=== PATIENT | male | born 1970 | race Caucasian/White ===

== ENCOUNTER 2024-08-29 13:06 | Emergency (ER) | payer OTHER, SELFPAY ==
[2024-08-29 13:12] VITALS: BP 187/89; PULSE 92; RESP 20; TEMP 36.8; O2SAT 96
[2024-08-29 13:56] LABS: COVID-19 PCR Negative (Negative); Influenza A PCR Negative (Negative); Influenza B PCR Negative (Negative); RSV PCR Negative (Negative)
[2024-08-29 14:01] LABS: Source Nasopharynx
--- NOTE | 2024-08-29 14:15 | RT.EKG_ITS ---
APPROVED REPORT Exam: Resting ECG Reason for Exam: sob Patient Location: E HR:92 bpm ECG Measurements Heart Rate 92 AXIS MN 113 P 58 QRSd 132 QRS -35 QT 385 T 59 QTc 471 Conclusion Sinus rhythm...normal P axis, V-rate 60- 99 Atrial premature complexes...SV complexes w/ short R-R intvls Probable left atrial enlargement...P >50mS, <-0.10mV V1 Right bundle branch block...QRSd>120, terminal axis(90,270) Sinus wwith RBBB, premasture atrial complexes, no prior for comparison. WD
--- NOTE | 2024-08-29 14:15 | DI.RAD_ITS ---
Exam(s) XR CHEST 2V PA LATERAL EXAM: XR CHEST 2V PA LATERAL CLINICAL HISTORY: cough, SOB TECHNIQUE: 2D digital imaging was performed. Two views. COMPARISON: No exams were available for comparison FINDINGS: HEART: Normal size. Status post CABG. Aorta: Not dilated. PULMONARY VASCULATURE: Normal. MEDIASTINUM: Unremarkable. LUNGS: Clear. PLEURAL SPACE: No pleural effusion or pneumothorax. BONE:Unremarkable for age. Sternal wires. SOFT TISSUES: Unremarkable. IMPRESSION: No acute abnormality. DATA REPOSITORY: RADIATION DOSE DELIVERED:
[2024-08-29] MEDS: predniSONE 20 MG TAB 60 MG PO (14:37)
[2024-08-29] MEDS: Albuterol/Ipratropium 3 ML UPD VIAL UPD (14:37)
--- NOTE | 2024-08-29 15:15 | W.ED.GENAD ---
Discharge Plan Disposition Patient Disposition: Home Condition: Stable Discharge Details Clinical Impression: Bronchitis Primary Care Provider: [place] [place] ED Provider: Lissette Gipson Home Meds and New Rx's Prescriptions: New doxycycline hyclate 100 mg capsule 100 mg PO BID Qty: 14 0RF prednisone 50 mg tablet 50 mg PO DAILY Qty: 5 0RF albuterol sulfate 90 mcg/actuation HFA aerosol inhaler 2 puff inhalation Q6H PRNQty: 8.5 0RF benzonatate 200 mg capsule 200 mg PO BID PRNQty: 30 0RF No Action clopidogrel 75 mg tablet 75 mg PO DAILY aspirin 81 mg tablet 81 mg PO DAILY omeprazole 20 mg capsule,delayed release(DR/EC) 20 mg PO DAILY metoprolol succinate 25 mg tablet extended release 24 hr 25 mg PO DAILY Discharge Instructions Instructions: Acute bronchitis, Conjunctivitis (pink eye) Additional Instructions: Take antibiotic as prescribed. Use inhaler as needed. Take steroid. Follow-up with your primary care doctor. Stand Alone Forms: Work Release Referrals: [facility] [Primary Care Provider] - Discharge Data Discharge Physician: Lissette Gipson [facility] General Date/Time Provider Initiated Documentation: 08/29/24 13:55. HPI Narrative: 54-year-old male with history of coronary disease status post CABG and history of tobacco use presents for evaluation of ongoing cough. Patient states that symptoms began a week ago Monday. He has had intermittent cough with green sputum production. He has also had some intermittent fevers. He has been taking Tylenol. He states that he has congestion in his ear and pain to his left ear. He feels like his anterior lymph nodes are enlarged. He occasionally has some burning in his throat. He was seen at urgent care last week and had negative strep, flu, COVID, RSV. He states that his symptoms were a little worse over the last couple of days. Denies any nausea or vomiting. No abdominal pain. He did not have a bowel movement today but otherwise has been having normal bowel movements. Denies any urinary difficulty. He does have a history of smoking prior to his heart surgery however never officially diagnosed with COPD. He does not use inhalers. No recent steroid or antibiotic use. Related Data Home Medications ?Medication ?Instructions ?Recorded ?Confirmed albuterol sulfate 90 mcg/actuation 2 puff inhalation Q6H PRN #8.5 08/29/24 aerosol inhaler grams aspirin 81 mg tablet 81 mg PO DAILY 08/29/24 08/29/24 benzonatate 200 mg capsule 200 mg PO BID PRN #30 caps 08/29/24 clopidogrel 75 mg tablet 75 mg PO DAILY 08/29/24 08/29/24 doxycycline hyclate 100 mg capsule 100 mg PO BID #14 caps 08/29/24 metoprolol succinate 25 mg 25 mg PO DAILY 08/29/24 08/29/24 tablet,extended release 24 hr omeprazole 20 mg capsule,delayed 20 mg PO DAILY 08/29/24 08/29/24 release prednisone 50 mg tablet 50 mg PO DAILY #5 tabs 08/29/24 Previous Rx's ?Medication ?Instructions ?Recorded albuterol sulfate 90 mcg/actuation 2 puff inhalation Q6H PRN #8.5 08/29/24 aerosol inhaler grams benzonatate 200 mg capsule 200 mg PO BID PRN #30 caps 08/29/24 doxycycline hyclate 100 mg capsule 100 mg PO BID #14 caps 08/29/24 prednisone 50 mg tablet 50 mg PO DAILY #5 tabs 08/29/24 Allergies Allergy/AdvReac Type Severity Reaction Status Date / Time No Known Allergies Allergy Unverified 08/29/24 13:07 General Stated Complaint: RespSymp IAIN: 3 Review of Systems Narrative: Remainder of review of systems otherwise negative except for as noted in the HPI x 10. Exam Narrative Exam Narrative: General: non-toxic, no respiratory distress, comfortable HEENT: normocephalic, atraumatic, lids and lashes normal, PERRL, EOMI, anicteric sclera, no conjunctival injection, slight erythema and tearing from left eye, no discharge, TMs with cerumen bilateral, moist oral mucosa Neck: Bilateral cervical lymphadenopathy, no meningeal signs Card: regular rate and rhythm, S1S2, no murmurs, rubs, or gallops Lungs: good air entry, clear to auscultation bilaterally. no wheezes, rales, rhonchi, or retractions Abd: soft, non-tender, non-distended, normal bowel sounds, no rebound or guarding, no peritoneal signs Musculoskeletal: full range of motion of arms and legs, no tenderness to palpation. no clubbing, cyanosis, or edema Neurologic: appropriate for age, strength normal Psych: alert and oriented Skin: no petechiae, no lesions, warm and dry Course Vital Signs Vital signs: Vital Signs Temperature 36.8 C 08/29/24 13:12 Pulse 92 H 08/29/24 13:12 Respiratory Rate 20 08/29/24 13:12 Blood Pressure 187/89 H 08/29/24 13:12 Pulse Oximetry 96 08/29/24 13:12 Temperature 36.8 C 08/29/24 13:12 Temperature Source Oral 08/29/24 13:12 Pulse 92 H 08/29/24 13:12 Respiratory Rate 20 08/29/24 13:12 Respiratory Effort Normal 08/29/24 13:19 Respiratory Depth Normal 08/29/24 13:19 Blood Pressure 187/89 H 08/29/24 13:12 Blood Pressure Position Sitting 08/29/24 13:12 Pulse Oximetry 96 08/29/24 13:12 Oxygen Delivery Method Room Air 08/29/24 13:12 Oxygen Flow Rate 0 08/29/24 13:12 Lab/Test Results Lab/Test Results: Laboratory Tests Range/Units 08/29/24 13:10 COVID-19 Source Nasopharynx SARS-CoV-2 (PCR) (Negative) Negative Influenza Type A (PCR) (Negative) Negative Influenza Type B (PCR) (Negative) Negative RSV (PCR) (Negative) Negative Medical Decision Making 54-year-old male with history of prior smoking, CABG presents for evaluation of ongoing respiratory symptoms. At time my evaluation lung sounds are clear. He has had some intermittent fevers. Rapid flu, COVID, RSV are negative. EKG does not show any acute ischemic changes. Chest x-ray negative for pneumonia. Given patient's history I am concerned about possible underlying COPD with a COPD exacerbation. He was treated with DuoNeb, steroid with some improvement. Will continue steroid, inhaler, and doxycycline at home. He is given a note for work. He understands indications to return. Quality:SDOH Health Related Social Needs: No Data to Display PFSH All Active Problems (Updated 08/29/24 @ 15:18 by Lissette Gipson MD) Bronchitis (Acute) Social History Smoking/Tobacco Use Status: Former Tobacco Use Quit Date: 09/08/21 Smoking risk assessment performed?: Yes Alcohol Intake: current Alcohol Intake frequency: 0-2 drinks per day Alcohol type: wine and hard liquor Drug use: Never Housing: apartment Do you feel safe at home: No Do you feel safe in your relationship?: No PAWSS Have you Been Recently Intoxicated or Drunk Within the Last 30 days?: No Have you Ever Experienced Previous Episodes of Alcohol Withdrawal?: Yes Have you ever Experienced Withdrawal Seizures?: No Have you ever Experienced Delirium Tremens(DT)s?: No Have you ever undergone Alcohol Rehabilitation Treatment (i.e, inpt ot outpatient treatment programs)?: No Have you ever Experienced Blackouts?: No Have you ever Combined Alcohol with other Downers within the last 90 days?: No Have you ever Combined Alcohol with any other Substance of Abuse during the last 90 days?: No Positive Blood Alcohol level on Presentation? [PCS.BAL]: No Evidence of Increased Autonomic Activity (i.e. HR>120, tremor, sweating, agitation, nausea)?: No Result: 1
[2024-08-29 15:18] VITALS: BP 151/77; PULSE 92; RESP 16; O2SAT 100
== END 2024-08-29 15:30 | disposition home or self-care (01) ==
PROVIDERS: Emergency Provider Emergency Medicine Emergency Medical Services
DX: J40 Bronchitis, not specified as acute or chronic (principal)
CPT/HCPCS: 99284 ×2; 94640; 87637; 93005; 71046; 93010; J7512; J7620